=== PATIENT | male | born 1990 | race Two or more races ===

== ENCOUNTER 2019-06-15 10:49 | Emergency (ER) | payer MEDICAID, OTHER ==
[~2019-06-15] VITALS: Ht 182.9 cm; Wt 71.9 kg
[2019-06-15 11:05] VITALS: BP 124/71
[2019-06-15] MEDS ORDERED: IBUPROFEN 800 MG TAB PO ONE (13:30)
== END 2019-06-15 13:59 | disposition home or self-care (01) ==
LOC: ER 10:54
DX: S62.336A Displaced fracture of neck of fifth metacarpal bone, right hand, initial encounter for closed fracture (principal); F17.210 Nicotine dependence, cigarettes, uncomplicated; W22.8XXA Striking against or struck by other objects, initial encounter; Y93.89 Activity, other specified; Y99.8 Other external cause status; Y92.89 Other specified places as the place of occurrence of the external cause
CPT/HCPCS: 29125; 73130; 99283; J7030

== ENCOUNTER 2019-06-18 19:59 | Emergency (ER) | payer MEDICAID ==
[~2019-06-18] VITALS: Ht 182.9 cm; Wt 72.6 kg
[2019-06-18 20:13] VITALS: BP 106/65
[2019-06-18 21:25] LABS: Basophils # (auto) 0 uL; Basophils % (auto) 0.4 % (0.0-2.0); Eosinophils # (auto) 0 uL; Eosinophils % (auto) 0.6 % (0.0-7.0); Hematocrit 48.1 % (41.0-53.0); Hemoglobin 16.4 g/dL (13.5-17.5); Lymphocytes # (auto) 2.1 uL; Lymphocytes % (auto) 28.4 % (10.0-50.0); Mean Corpuscular Hgb Conc. 34.1 g/dL (32.0-36.0); Monocytes # (auto) 0.5 uL; Monocytes % (auto) 6.1 % (0.0-12.0); Neutrophils # (auto) 4.9 uL; Neutrophils % (auto) 64.5 % (37.0-80.0); Nucleated Red Blood Cells % 0.1 %; Platelet Count (auto) 191 10^3/uL (140-450); Red Blood Cells 5.12 10^6/uL (4.5-5.90); Red Cell Distribution Width 14.4 % (11.8-14.3); White Blood Cell 7.6 10^3/uL (4.4-10.8)
[2019-06-18 22:09] LABS: Salicylate 5.8 mg/dL (2.8-20.0)
[2019-06-18 22:10] LABS: Albumin 4.4 g/dL (3.4-5.0); Calcium 8.5 mg/dL (8.5-10.1); Potassium 3.6 mmol/L (3.5-5.1)
[2019-06-18 22:11] LABS: Acetaminophen < 2.0 ug/mL (10-30)
[2019-06-18 22:14] LABS: BUN/Creatinine Ratio 8.1; Bilirubin, Total 0.4 mg/dL (0.2-1.0)
== END 2019-06-18 23:12 | disposition left against medical advice (07) ==
LOC: ER 20:00
DX: R45.851 Suicidal ideations (principal); Z53.21 Procedure and treatment not carried out due to patient leaving prior to being seen by health care provider
CPT/HCPCS: 36415; 80053; 80320; 80329; 85025